=== PATIENT | female | born 1970 | race American Indian/Alaskan Native ===

== ENCOUNTER 2017-10-26 00:03 | Emergency (ER) | payer OTHER ==
--- NOTE | 2017-10-26 00:37 | ED PDOC ---
Arrival/HPI - General Time Seen by Provider: 10/26/17 00:13 Historian: Patient - History of Present Illness Narrative History of Present Illness (Text): 10/26/17 00:27 Dionna Porras is a 46 year old female who presents to the Emergency department complaining of anxiety. Patient states tonight she became short of breath with associated tingling sensation to bilateral upper and lower extremities. Patient notes she has been feeling anxious following the recent of her mother a few days prior. Patient denies any fever, chills, chest pain, nausea, vomiting, diarrhea, back pain, neck pain, headache, dizziness, or any other complaints. Time/Duration: Other (tonight) Symptom Onset: Gradual Symptom Course: Unchanged Activities at Onset: Light, Emotional Upset (Recent in family) Context: Home Past Medical History - Provider Review Nursing Documentation Reviewed: Yes - Past History Past History: Non-Contributing - Tetanus Immunization Tetanus Immunization: Unknown - Past Medical History Past Medical History: No Previous - Psychiatric Hx Emotional Abuse: No Hx Physical Abuse: No Hx Substance Use: No - Surgical History Hx Section: Yes Hx Hysterectomy: Yes - Suicidal Assessment Feels Threatened In Home Enviroment: No Family/Social History - Physician Review Nursing Documentation Reviewed: Yes Family/Social History: Unknown Family HX Hx Alcohol Use: No Hx Substance Use: No Hx Substance Use Treatment: No Allergies/Home Meds Allergies/Adverse Reactions: Allergies latex Allergy (Verified 10/26/17 00:44) RASH Home Medications: Home Meds Medication Instructions Recorded Confirmed No Known Home Med 07/16/12 11/04/14 Review of Systems - Physician Review All systems were reviewed & negative as marked: Yes - Review of Systems Constitutional: Normal. absent: Fevers Eyes: Normal ENT: Normal Respiratory: SOB Cardiovascular: Normal Gastrointestinal: Normal. absent: Abdominal Pain, Diarrhea, Nausea, Vomiting Genitourinary Female: Normal. absent: Dysuria, Urine Output Changes Musculoskeletal: Normal. absent: Back Pain, Neck Pain Skin: Normal. absent: Rash Neurological: Other (+tingling sensation in extremities) Endocrine: Normal Hemo/Lymphatic: Normal Psychiatric: Anxiety Physical Exam Vital Signs Reviewed: Yes Vital Signs Temp Pulse Resp BP Pulse Ox 10/26/17 03:51 98.6 F 76 16 118/76 98 10/26/17 00:45 98.3 F 92 H 20 122/81 98 Temperature: Afebrile Blood Pressure: Normal Pulse: Regular Respiratory Rate: Normal Appearance: Positive for: Well-Appearing, Non-Toxic, Comfortable Pain Distress: None Mental Status: Positive for: Alert and Oriented X 3 - Systems Exam Head: Present: Atraumatic, Normocephalic Pupils: Present: PERRL Extroacular Muscles: Present: EOMI Conjunctiva: Present: Normal Mouth: Present: Moist Mucous Membranes Neck: Present: Normal Range of Motion Respiratory/Chest: Present: Clear to Auscultation, Good Air Exchange. No: Respiratory Distress, Accessory Muscle Use Cardiovascular: Present: Regular Rate and Rhythm, Normal S1, S2. No: Murmurs Abdomen: No: Tenderness, Distention, Peritoneal Signs Back: Present: Normal Inspection Upper Extremity: Present: Normal Inspection. No: Cyanosis, Edema Lower Extremity: Present: Normal Inspection. No: Edema Neurological: Present: GCS=15, CN II-XII Intact, Speech Normal Skin: Present: Warm, Dry, Normal Color. No: Rashes Psychiatric: Present: Alert, Oriented x 3, Normal Insight, Normal Concentration Medical Decision Making ED Course and Treatment: 10/26/17 00:27 Impression: 46 year old female presents for anxiety, shortness of breath, and tingling sensation to extremities tonight. Differential Diagnosis included but are not limited to: anxiety Plan: -- EKG -- Labs, cardiac enzymes -- Urinalysis -- Ativan -- Reassess and disposition Progress Notes: Reviewed EKG, NSR at [address]-segment elevations or depressions, no T-wave inversions, normal intervals. 10/26/17 03:10 On re-evaluation, patient feels better and is in no acute distress. I have discussed the results and plan with the patient, who expresses understanding. Patient in agreement with plan to be discharged home. Patient is stable for discharge. Patient was instructed to follow up with physician or return if symptoms worsen or new concerning symptoms arise. - Lab Interpretations Lab Results: 10/26/17 01:25 10/26/17 01:25 Lab Results 10/26/17 01:25: Sodium 139, Potassium 3.8, Chloride 104, Carbon Dioxide 26, Anion Gap 13, BUN 13, Creatinine 0.9, Est GFR ( Amer) > 60, Est GFR (Non- Af Amer) > 60, Random Glucose 116 H, Calcium 8.7, Magnesium 1.9, Total Bilirubin 0.4, AST 36, ALT 23, Alkaline Phosphatase 54, Lactate Dehydrogenase 555, Total Creatine Kinase 404 H, CK-MB (CK-2) 3.3, CK-MB (CK-2) % Cancelled, Troponin I < 0.01, Total Protein 7.7, Albumin 3.9, Globulin 3.7, Albumin/ Globulin Ratio 1.0 L 10/26/17 01:25: WBC 7.1, RBC 4.33, Hgb 12.9, Hct 37.8, MCV 87.3, MCH 29.8, MCHC 34.1, RDW 13.1, Plt Count 325, MPV 9.3, Gran % 49.2 L, Lymph % (Auto) 43.2 H, Barren % (Auto) 6.2 H, Eos % (Auto) 1.0 L, Baso % (Auto) 0.4, Gran # 3.49, Lymph # (Auto) 3.1, Barren # (Auto) 0.4, Eos # (Auto) 0.1, Baso # (Auto) 0.03 I have reviewed the lab results: Yes - EKG Interpretation Interpreted by ED Physician: Yes Type: 12 lead EKG - Medication Orders Current Medication Orders: Discontinued Medications Lorazepam (Ativan) 1 mg PO ONCE ONE PRN Reason: Protocol Stop: 10/26/17 00:47 Last Admin: 10/26/17 00:54 Dose: 1 mg - Scribe Statement The provider has reviewed the documentation as recorded by the Rico Sena Provider Scribe Attestation: All medical record entries made by the Rico were at my direction and personally dictated by me. I have reviewed the chart and agree that the record accurately reflects my personal performance of the history, physical exam, medical decision making, and the department course for this patient. I have also personally directed, reviewed, and agree with the discharge instructions and disposition. Disposition/Present on Arrival - Present on Arrival Any Indicators Present on Arrival: No History of DVT/PE: No History of Uncontrolled Diabetes: No Urinary Catheter: No History Surgical Site Infection Following: None - Disposition Have Diagnosis and Disposition been Completed?: Yes Diagnosis: Anxiety Disposition: HOME/ ROUTINE Disposition Time: 03:10 Condition: GOOD Discharge Instructions (ExitCare): Anxiety, Adult (DC) Referrals: Jessica Carrasco MD [Primary Care Provider] - Follow up with primary Forms: [employer] (Yi), WORK NOTE
[2017-10-26 00:45] VITALS: BMI 33.1
[2017-10-26 00:49] VITALS: O2SAT 98
[2017-10-26 02:12] LABS: ALBUMIN 3.9 g/dL (3.0-4.8); ALT/SGPT 23 U/L (7-56); AST/SGOT 36 U/L (14-36); BLOOD UREA NITROGEN 13 mg/dL (7-21); CALCIUM 8.7 mg/dL (8.4-10.5); GFR AFRICAN-AMERICAN > 60; GFR NON-AFRICAN AMERICAN > 60
[2017-10-26 02:17] LABS: HEMOGLOBIN 12.9 g/dL (12.0-16.0); MEAN CELL VOLUME 87.3 fl (80.0-105.0); MEAN CORPUSCULAR HEMOGLOBIN 29.8 pg (25.0-35.0); MEAN CORPUSCULAR HGB CONC 34.1 g/dl (31.0-37.0); RBC 4.33 10^6/uL (3.5-6.1); RED CELL DISTRIBUTION WIDTH 13.1 % (11.5-14.5); WHITE BLOOD COUNT 7.1 10^3/ul (4.5-11.0)
[2017-10-26 02:18] LABS: BASO # 0.03 K/mm3 (0.0-2.0); BASO % 0.4 % (0.0-3.0); EOS # 0.1 (0.0-0.7); GRAN # 3.49 (1.4-6.5); GRAN % 49.2 % (50.0-68.0); LYMPH # 3.1 (1.2-3.4); LYMPH % 43.2 % (22.0-35.0); MEAN PLATELET VOLUME 9.3 fl (7.0-11.0); MONO # 0.4 (0.1-0.6); MONO % 6.2 % (1.0-6.0)
[2017-10-26 02:24] LABS: TROPONIN I < 0.01 ng/mL
[2017-10-26 03:03] LABS: CK-MB 3.3 ng/mL (0.0-3.6)
[2017-10-26 03:52] VITALS: BP 118/76; PULSE 76; RESP 16; TEMP 98.6
--- NOTE | 2017-10-26 22:47 | CARD ---
APPROVED REPORT EKG Measurement Heart [id number] <Conclusion> Normal sinus rhythm Normal ECG
== END 2017-10-26 03:16 | disposition home or self-care (01) ==
LOC: ED 00:03
DX: F41.9 Anxiety disorder, unspecified (principal)